=== PATIENT | male | born 1975 | race Caucasian/White ===

== ENCOUNTER 2016-06-08 11:07 | Emergency (ER) | payer BC ==
[~2016-06-08] VITALS: Ht 180.3 cm; Wt 122.0 kg
[2016-06-08] MEDS ORDERED: ONDANSETRON 2 MG/ML (Z0FRAN) 2 ML VIAL IV ONE (11:35)
[2016-06-08] MEDS ORDERED: diphenhydrAMINE 50 MG/ML INJ (BENADRYL) IV ONE (11:35)
[2016-06-08] MEDS ORDERED: DEXAMETHASONE 4 MG/ML (DECADRON) 5ml VIAL IV ONE (11:35)
[2016-06-08] MEDS ORDERED: KETOROLAC 30 MG/ML (TORADOL) 1 ML VIAL IV ONE (11:35)
[2016-06-08 11:51] LABS: BASOPHILS % (AUTO) 0 % (0-2); EOSINOPHILS # (AUTO) 0.1 10^3uL; EOSINOPHILS % (AUTO) 1 % (0-4); LYMPHOCYTES # (AUTO) 1.3 X10^3; MEAN CORPUSCULAR VOLUME 87 FL (80-100); MEAN PLATELET VOLUME 10.3 FL (6.0-9.5); MONOCYTES # (AUTO) 0.4 X10^3; MONOCYTES % (AUTO) 4 % (3-11); NEUTROPHILS # (AUTO) 9.1 X10^3; NEUTROPHILS % (AUTO) 83 % (51-67); PLATELET COUNT 235 10^3uL (150-450); WHITE BLOOD COUNT 10.91 10^3uL (4.0-11.0)
[2016-06-08 11:52] LABS: BILIRUBIN,URINE Negative (Negative); CLARITY,URINE Clear; COLOR,URINE Yellow; GLUCOSE, URINE (UA) Negative (Negative); LEUKOCYTE ESTERASE ,URINE Negative (Negative); UROBILINOGEN,URINE 0.2 mg/dL (0.2-1.0)
[2016-06-08 11:53] LABS: MEAN CORPUSCULAR HEMOGLOBIN 32.3 PG (26.0-34.0); MEAN CORPUSCULAR HGB CONC 37.2 g/dL (31.0-37.0)
[2016-06-08 11:53] LABS: URINE CENTRIFUGED VOLUME 12 mL
[2016-06-08 11:58] LABS: RBC,URINE None Seen /HPF
[2016-06-08 11:59] LABS: ALBUMIN 4.6 g/dL (3.4-5.0); ANION GAP 16.4 MEQ/L (3-15); CALCULATED IONIZED CALCIUM 3.7 mg/dL (3.8-4.6); TOTAL PROTEIN 8.3 g/dL (6.4-8.5)
--- NOTE | 2016-06-08 12:55 | NUR ---
IV bag was scanned twice by 2 different nurses, disregard second liter which was not given.
[2016-06-08 13:16] VITALS: BP 139/86
== END 2016-06-08 13:15 | disposition home or self-care (01) ==
LOC: ED 11:12
DX: R51 Headache (principal)
CPT/HCPCS: 36415; 80053; 81003; 81015; 85025; 96361; 96374; 96375; 99283; J1100; J1200; J1885; J2405; J7030

== ENCOUNTER 2016-07-13 23:43 | Emergency (ER) | payer BC ==
[~2016-07-13] VITALS: Ht 180.3 cm; Wt 114.8 kg
[~2016-07-13 23:43] MED LIST: SMTR50T PO
--- OUTSIDE RECORDS SUMMARY | 2016-07-13 23:46 | XMS REPORT | Continuity of Care Document ---
Author Author [facility] Address Unknown Phone Unavailable Allergies Active Description Code Type Severity Reaction Onset Reported/Identified Relationship to Patient Clinical Status Yes No Known Medication Allergies NKMA N/A N/A 09/26/2015 Yes No Known Drug Allergies [id number] Drug Allergy Unknown N/ A 06/08/2016 Medications Medication Packaging Start Date Stop Date Route Dosage Sig ibuprofen(ibuprofen) 1 tabs 09/26/2015 09/26/2015 Oral 800 mg 800 mg=1 tabs, Oral, Once oxyCODONE-acetaminophen(Percocet 10/325 oral tablet) 2 tabs 09/26/2015 09/29/2015 Oral 2 tabs, Oral, q6hr, for 3 days, PRN: as needed for pain , 24 tabs, 0 Refill(s) cyclobenzaprine(cyclobenzaprine 10 mg oral tablet) 1 tabs 09/26/2015 10/06/2015 Oral 10 mg 10 mg=1 tabs, Oral, TID, for 10 days, PRN: as needed for spasm, 30 tabs, 0 Refill(s) ibuprofen(ibuprofen 200 mg oral tablet) 4 tabs 09/26/201510/05 Oral 800 mg 800 mg=4 tabs, Oral, q8hr, for 10 days, PRN: as needed for fever , 120 tabs, 0 Refill(s) Problems Date Dx Coded Attending Type Code Diagnosis Diagnosed By 10/04/2015 Clarke Curt Final M54.31 Sciatica, right side 10/04/2015 Clarke Curt Reason M79.661 Pain in right lower leg 06/08/2016 Haile Francis Ot 338.29 OTHER CHRONIC PAIN 06/08/2016 Haile Francis Ot 724.2 LUMBAGO 06/08/2016 Haile Franics Ot 338.29 OTHER CHRONIC PAIN 06/08/2016 Haile Francis Ot 724.2 LUMBAGO 06/08/2016 FARZANEH KOCH MD Ot R51 HEADACHE 06/12/2016 FARZANEH KOCH MD Ot R51 HEADACHE 06/14/2016 FARZANEH KOCH MD Ot R51 HEADACHE 07/13/2016 Haile Francis Ot 338.29 OTHER CHRONIC PAIN 07/13/2016 Haile Francis Ot 724.2 LUMBAGO Procedures Results Test Result Range UA CULTURE IF INDICATED* - 06/08/16 11:40 COLLECTION METHOD CLEAN CATCH Color of urine by auto Yellow Urine appearance determination Clear Urine pH measurement by automated test strip 7.0 5.0 - 8.0 Specific gravity of urine by automated test strip 1.025 1.005-1.030 Urine protein measurement by test strip (mass/volume) Trace Negative Urine glucose detection by automated test strip Negative Negative Urine erythrocytes count by automated test strip (number/volume) Negative Negative Urine ketones detection by automated test strip Trace Negative Urine nitrite detection by test strip Negative Negative Urine total bilirubin detection by automated test strip Negative Negative Urine urobilinogen measurement by automated test strip (mass/volume) 0.2 0.2-1.0 Urine leukocyte esterase detection by dipstick Negative Negative Microscopic examination of urine - 06/08/16 11:40 Urine volume measurement 12 mL Urine erythrocytes detection by automated method None Seen Automated urine sediment leukocyte count by microscopy (number/high power field ) None Seen Bacteria None Seen SQUAMOUS EPITHELIAL CELL,UR 0-2 MUCOUS,URINE 2+ Complete blood count (CBC) with automated white blood cell (WBC) differential - 06/08/16 11:42 Blood automated leukocyte count 10.91 4.0-11.0 Erythrocytes 4.99 4.50-5.50 12.0-16.0;g/dL 16.1 13.5-17.0 Hematocrit 43.30 39.00-50.00 Automated erythrocyte mean corpuscular volume 87 80-100 Mean corpuscular hemoglobin (MCH) determination 32.3 26.0-34.0 Automated erythrocyte mean corpuscular hemoglobin concentration measurement ( mass/volume) 37.2 31.0-37.0 Erythrocyte distribution width 12.4 11.8 -15.6 Automated blood platelet count 235 150- 450 Automated blood platelet mean volume measurement 10.3 6.0-9.5 Automated neutrophil percentage 83 51- 67 Lymphocytes/100 leukocytes 12 20-46 Automated monocyte percentage 4 3-11 Eosinophil count auto 1 0-4 Automated basophil percentage 0 0-2 Automated blood neutrophil count 9.1 Blood lymphocytes count (number/volume) 1.3 Automated blood monocyte count 0.4 Blood absolute eosinophil count 0.1 Basophils 0.0 Comprehensive metabolic panel - 06/08/16 11:42 Sodium measurement 99 70-110 CARBON DIOXIDE 24 22-29 Serum or plasma anion gap 16.4 3-15 BLOOD UREA NITROGEN 24 7-18 CREATININE SERUM 0.77 0.8-1.5 Brucella species antibody panel (IgG, IgM) 31 10-20 Estimated glomerular filtration rate (GFR) 133.4 Estimated glomerular filtration rate (GFR) non- 110.3 OSMOLALITY,CALCULATED 277 280-300 CALCIUM 9.3 8.8-10.8 Calculated ionized calcium measurement 3.7 3.8-4.6 BILIRUBIN,TOTAL 1.0 0.1-1.0 Serum or plasma alkaline phosphatase measurement 83 38-126 ASPARTATE AMINO TRANSFERASE 33 15-37 ALANINE AMINOTRANSFERASE 54 30-65 Serum or plasma total protein measurement 8.3 6.4-8.5 Serum or plasma albumin measurement 4.6 3.4-5.0 Serum or plasma albumin/globulin mass ratio 1.243 1.1-1.8 Encounters ACCT No. Visit Date/Time Discharge Status Pt. Type Provider Facility Loc./Unit Complaint [id number] 11/28/2013 11:30:15 11/28/2013 23: 59:59 CLS Outpatient Jared Knight
--- OUTSIDE RECORDS SUMMARY | 2016-07-13 23:50 | XMS REPORT | Continuity of Care Document ---
Author Author [facility] Address Unknown Phone Unavailable Allergies Active Description Code Type Severity Reaction Onset Reported/Identified Relationship to Patient Clinical Status Yes No Known Medication Allergies NKMA N/A N/A 09/26/2015 Yes No Known Drug Allergies [id number] Drug Allergy Unknown N/ A 06/08/2016 Medications [...] Haile Francis Ot 724.2 LUMBAGO 06/08/2016 Haile Francis Ot 338.29 OTHER CHRONIC [...] Status Pt. Type Provider Facility Loc./Unit Complaint [id number] 11/28/2013 11:30:15 11/28/2013 23: 59:59 CLS Outpatient Jared Knight
[2016-07-14] MEDS ORDERED: FLUO10CA29 PO (00:10)
[2016-07-14 01:10] LABS: BILIRUBIN,URINE Negative (Negative); CLARITY,URINE Clear; COLOR,URINE Yellow; GLUCOSE, URINE (UA) Negative (Negative); LEUKOCYTE ESTERASE ,URINE Negative (Negative)
[2016-07-14] MEDS ORDERED: ED- HYDROcodone/ACETAMINOPHEN 5MG/325MG (NORCO) 6 TABLETS/BTL PO ONE (01:10)
[2016-07-14] MEDS ORDERED: ED- CYCLOBENZAPRINE 10 MG (FLEXERIL) 3 TABLETS/BTL PO ONE (01:10)
[2016-07-14 01:35] VITALS: BP 110/70
--- NOTE | 2016-07-14 06:59 | Diagnostic Imaging Report ---
INDICATION: Upper back pain, no injury. TECHNIQUE: AP, lateral, swimmer's and odontoid views cervical spine.. CORRELATION STUDY: None FINDINGS: Alignment anatomic. Cervical vertebral body heights maintained. Mild to moderate endplate lipping of the particularly anterior C5 vertebral body. Disc space narrowing C5-C6 and C6-C7 levels. Odontoid intact. Lateral masses of C1 and C2 aligned. IMPRESSION: 1. Negative for acute findings of the cervical spine. Mild multilevel degenerative changes present. Dictated by: Dictated on workstation # [id number]
--- NOTE | 2016-07-14 07:03 | Diagnostic Imaging Report ---
INDICATION: Pain in the upper back with no known injury.. TECHNIQUE: AP, lateral, and swimmer's imaging of the thoracic spine. CORRELATION STUDY: None. FINDINGS: Particularly the frontal projection is compromised with patient motion artifact. Given this, the alignment overall appears to be relatively anatomic. Mild endplate lipping with degenerative changes suggested. There is slight loss of height suggested at what appears to be the T11 vertebral body that appears stable from prior imaging. No definitive evidence for acute compression deformity of the thoracic vertebral bodies. IMPRESSION: Limited imaging of the thoracic spine demonstrates no definite evidence for acute bony abnormality. Unchanged compression deformity at what appears to be likely T11 vertebral body. Dictated by: Dictated on workstation # [id number]
== END 2016-07-14 01:37 | disposition home or self-care (01) ==
LOC: ED 23:46
DX: S29.012A Strain of muscle and tendon of back wall of thorax, initial encounter (principal); X58.XXXA Exposure to other specified factors, initial encounter; M62.830 Muscle spasm of back
CPT/HCPCS: 72040; 72072; 81003; 99282